=== PATIENT | female | born 1935 | race Caucasian/White ===

== ENCOUNTER 2016-05-23 13:25 | Inpatient (IN) | payer OTHER, BC ==
[~2016-05-23] VITALS: Ht 170.2 cm; Wt 51.9 kg
[2016-05-23] VITALS (9 sets, daily range): BP systolic 131–175; BP diastolic 52–94
[~2016-05-23 13:25] MED LIST: ATORVASTATIN CA40 MG PO; ATORVASTATIN CA80 MG PO; DAILY VALUE1 EACH PO; DIOVAN160 MG PO; GABAPENTIN300 MG PO; GENTAMICIN SULFA5 ML BOTH EYES; LEVOTHYROXINE100 MCG PO; LO-DOSE ASPIRIN81 M1 PO; METOPROLOL SUCC25 MG PO; METOPROLOL TART25 MG PO; NITROSTAT0.4 MG SL; VESICARE10 MG PO; XIFAXAN550 MG PO
[2016-05-23 14:11] LABS: HEMATOCRIT 21.7 % (36.0-46.0); MCH 30.1 PG (29.0-34.0); MCHC 31.3 G/DL (30.0-36.0); MEAN PLAT.VOLUME 10.1 uM^3 (9.5-12.4); PLATELET COUNT 181 K/uL (156-360); RBC DIS.WIDTH-CV 13.6 % (11.8-14.6); RBC DIS.WIDTH-SD 47.6 % (39-53); RED BLOOD COUNT 2.26 M/uL (3.80-5.20); WHITE BLOOD COUNT 6.9 K/uL (4.1-10.2)
[2016-05-23 14:15] LABS: CHLORIDE 106 mEq/L (99-109); POTASSIUM 4.3 mEq/L (3.7-5.4); SODIUM 141 mEq/L (136-147)
[2016-05-23 14:17] LABS: GLUCOSE 116 mg/dL (70-99)
[2016-05-23 14:18] LABS: ANION GAP 7 MEQ/L (2-14)
[2016-05-23 14:20] LABS: GFR ESTIMATE (CALCULATED) > 59 mL/min/
[2016-05-23 14:21] LABS: UREA NITROGEN (BUN) 23 mg/dL (9-23)
[2016-05-23 14:26] LABS: TROP-I INTERPRETATION NEGATIVE; TROPONIN-I < 0.01 ng/mL (0.0-0.30)
[2016-05-23 19:26] LABS: IRON 21 MCG/DL (35-150)
[2016-05-23 19:57] LABS: HEMATOCRIT 25.8 % (36.0-46.0); MCH 29.6 PG (29.0-34.0); MCHC 31.4 G/DL (30.0-36.0); MCV 94.2 FL (83-99); MEAN PLAT.VOLUME 10.6 uM^3 (9.5-12.4); PLATELET COUNT 164 K/uL (156-360); RBC DIS.WIDTH-CV 13.7 % (11.8-14.6); RBC DIS.WIDTH-SD 47.2 % (39-53); WHITE BLOOD COUNT 5.5 K/uL (4.1-10.2)
[2016-05-23 20:01] LABS: FERRITIN 15 NG/ML (10-291)
[2016-05-23 20:31] LABS: RED BLOOD COUNT 2.74 M/uL (3.80-5.20)
[2016-05-23 23:34] LABS: HEMATOCRIT 27.3 % (36.0-46.0); MCH 29.7 PG (29.0-34.0); MCHC 32.6 G/DL (30.0-36.0); PLATELET COUNT 154 K/uL (156-360); RBC DIS.WIDTH-CV 13.6 % (11.8-14.6); RBC DIS.WIDTH-SD 45.2 % (39-53); WHITE BLOOD COUNT 5.4 K/uL (4.1-10.2)
[2016-05-23 23:49] LABS: INTER. NORMALIZED RATIO 1.1; PROTHROMBIN TIME 11.6 (9.2-11.2); PTT 25.5 (25-32)
[2016-05-24 08:11] LABS: HEMATOCRIT 29.1 % (36.0-46.0); MCH 29.8 PG (29.0-34.0); MCHC 32.3 G/DL (30.0-36.0); MCV 92.4 FL (83-99); MEAN PLAT.VOLUME 10.7 uM^3 (9.5-12.4); PLATELET COUNT 155 K/uL (156-360); RBC DIS.WIDTH-CV 13.9 % (11.8-14.6); RBC DIS.WIDTH-SD 47.6 % (39-53); RED BLOOD COUNT 3.15 M/uL (3.80-5.20)
[2016-05-24 08:40] LABS: CHLORIDE 110 mEq/L (99-109); POTASSIUM 4.4 mEq/L (3.7-5.4); SODIUM 142 mEq/L (136-147)
[2016-05-24 08:42] LABS: TROP-I INTERPRETATION NEGATIVE; TROPONIN-I 0.02 ng/mL (0.0-0.30)
[2016-05-24 08:44] LABS: ANION GAP 8 MEQ/L (2-14)
[2016-05-24 08:45] LABS: GLUCOSE 73 mg/dL (70-99); TOTAL BILIRUBIN 1.9 mg/dL (0.0-1.0)
[2016-05-24 08:46] LABS: ALKALINE PHOSPHATASE 48 IU/L (3-129)
[2016-05-24 08:47] LABS: GFR ESTIMATE (CALCULATED) > 59 mL/min/
[2016-05-24 08:48] LABS: DIRECT BILIRUBIN 0.6 mg/dL (0.0-0.3); UREA NITROGEN (BUN) 22 mg/dL (9-23)
[2016-05-24 08:50] LABS: CREATINE KINASE 78 IU/L (1-294); TOTAL CK 78 IU/L (1-294)
[2016-05-24 09:22] VITALS: BP 124/65
[2016-05-24 11:08] VITALS: BP 136/65
[2016-05-24 15:05] VITALS: BP 138/65
[2016-05-24 18:03] LABS: HEMATOCRIT 31.9 % (36.0-46.0); MCH 29.6 PG (29.0-34.0); MCHC 31.7 G/DL (30.0-36.0); MCV 93.5 FL (83-99); MEAN PLAT.VOLUME 10.6 uM^3 (9.5-12.4); PLATELET COUNT 176 K/uL (156-360); RED BLOOD COUNT 3.41 M/uL (3.80-5.20); WHITE BLOOD COUNT 7.3 K/uL (4.1-10.2)
[2016-05-24 20:00] VITALS: BP 170/74
[2016-05-25] VITALS (11 sets, daily range): BP systolic 128–182; BP diastolic 58–75
[2016-05-25 05:36] LABS: HEMATOCRIT 27.6 % (36.0-46.0); MCH 29.5 PG (29.0-34.0); MCHC 31.2 G/DL (30.0-36.0); MCV 94.5 FL (83-99); MEAN PLAT.VOLUME 11.4 uM^3 (9.5-12.4); PLATELET COUNT 150 K/uL (156-360); RBC DIS.WIDTH-SD 48.2 % (39-53); RED BLOOD COUNT 2.92 M/uL (3.80-5.20); WHITE BLOOD COUNT 6.1 K/uL (4.1-10.2)
[2016-05-25 06:34] LABS: ANION GAP 9 MEQ/L (2-14); CHLORIDE 109 MEQ/L (99-109); GFR ESTIMATE (CALCULATED) > 59 mL/min/; GLUCOSE 62 mg/dL (70-99); POTASSIUM 4.4 MEQ/L (3.7-5.4); SAMPLE HEMOLYSIS CHECK 0; SAMPLE ICTERIC CHECK 0; SAMPLE LIPEMIA CHECK 0; SODIUM 142 MEQ/L (136-147); UREA NITROGEN (BUN) 25 mg/dL (9-23)
[2016-05-25 18:28] LABS: HEMATOCRIT 32.3 % (36.0-46.0); MCH 29.6 PG (29.0-34.0); MCHC 31.9 G/DL (30.0-36.0); MCV 92.8 FL (83-99); MEAN PLAT.VOLUME 10.5 uM^3 (9.5-12.4); PLATELET COUNT 161 K/uL (156-360); RBC DIS.WIDTH-CV 14.4 % (11.8-14.6); RBC DIS.WIDTH-SD 48.4 % (39-53); RED BLOOD COUNT 3.48 M/uL (3.80-5.20); WHITE BLOOD COUNT 5.5 K/uL (4.1-10.2)
[2016-05-26 00:50] VITALS: BP 130/40
[2016-05-26 03:40] VITALS: BP 140/60
[2016-05-26 07:54] LABS: HEMATOCRIT 33.6 % (36.0-46.0); MCH 29.6 PG (29.0-34.0); MCHC 31.8 G/DL (30.0-36.0); MCV 92.8 FL (83-99); MEAN PLAT.VOLUME 10.7 uM^3 (9.5-12.4); PLATELET COUNT 157 K/uL (156-360); RBC DIS.WIDTH-CV 14.4 % (11.8-14.6); RBC DIS.WIDTH-SD 48.8 % (39-53); RED BLOOD COUNT 3.62 M/uL (3.80-5.20)
[2016-05-26 07:55] LABS: WHITE BLOOD COUNT 9.1 K/uL (4.1-10.2)
[2016-05-26 08:19] LABS: ANION GAP 10 MEQ/L (2-14); CHLORIDE 111 MEQ/L (99-109); GFR ESTIMATE (CALCULATED) > 59 mL/min/; POTASSIUM 4.5 MEQ/L (3.7-5.4); SAMPLE HEMOLYSIS CHECK 0; SAMPLE ICTERIC CHECK 0; SAMPLE LIPEMIA CHECK 0; SODIUM 141 MEQ/L (136-147); UREA NITROGEN (BUN) 19 mg/dL (9-23)
[2016-05-26 08:20] LABS: GLUCOSE 89 mg/dL (70-99)
[2016-05-26 08:40] VITALS: BP 123/54
[2016-05-26 15:35] LABS: HEMATOCRIT 33.6 % (36.0-46.0); MCH 29.9 PG (29.0-34.0); MCHC 32.1 G/DL (30.0-36.0); MCV 93.1 FL (83-99); MEAN PLAT.VOLUME 11.4 uM^3 (9.5-12.4); PLATELET COUNT 182 K/uL (156-360); RBC DIS.WIDTH-CV 14.4 % (11.8-14.6); RBC DIS.WIDTH-SD 49.1 % (39-53); RED BLOOD COUNT 3.61 M/uL (3.80-5.20); WHITE BLOOD COUNT 7.6 K/uL (4.1-10.2)
[2016-05-26 15:50] LABS: INTER. NORMALIZED RATIO 1.1; PTT 24.4 (25-32)
[2016-05-26 16:00] VITALS: BP 140/60
[2016-05-26 20:00] VITALS: BP 146/64
[2016-05-26 21:06] LABS: HEMATOCRIT 30.1 % (36.0-46.0); MCH 29.4 PG (29.0-34.0); MCHC 31.9 G/DL (30.0-36.0); MCV 92.3 FL (83-99); MEAN PLAT.VOLUME 10.7 uM^3 (9.5-12.4); PLATELET COUNT 164 K/uL (156-360); RBC DIS.WIDTH-SD 47.6 % (39-53); RED BLOOD COUNT 3.26 M/uL (3.80-5.20); WHITE BLOOD COUNT 6.5 K/uL (4.1-10.2)
[2016-05-27] VITALS: BP 148/67
[2016-05-27 03:12] LABS: HEMATOCRIT 25.7 % (36.0-46.0); MCH 29.7 PG (29.0-34.0); MCHC 32.7 G/DL (30.0-36.0); MCV 90.8 FL (83-99); MEAN PLAT.VOLUME 10.8 uM^3 (9.5-12.4); PLATELET COUNT 140 K/uL (156-360); RBC DIS.WIDTH-CV 13.7 % (11.8-14.6); RBC DIS.WIDTH-SD 45.3 % (39-53); RED BLOOD COUNT 2.83 M/uL (3.80-5.20); WHITE BLOOD COUNT 5.7 K/uL (4.1-10.2)
[2016-05-27 03:14] LABS: HEMATOCRIT 25.7 % (36.0-46.0); MCH 29.7 PG (29.0-34.0); MCHC 32.7 G/DL (30.0-36.0); MCV 90.8 FL (83-99); MEAN PLAT.VOLUME 10.8 uM^3 (9.5-12.4); PLATELET COUNT 140 K/uL (156-360); RBC DIS.WIDTH-CV 13.7 % (11.8-14.6); RED BLOOD COUNT 2.83 M/uL (3.80-5.20); WHITE BLOOD COUNT 5.7 K/uL (4.1-10.2)
[2016-05-27 03:15] LABS: RBC DIS.WIDTH-SD 45.3 % (39-53)
[2016-05-27 03:58] VITALS: BP 134/64
[2016-05-27 08:00] VITALS: BP 167/105
[2016-05-27 10:58] LABS: HEMATOCRIT 31.9 % (36.0-46.0); MCH 29.4 PG (29.0-34.0); MCHC 31.7 G/DL (30.0-36.0); MEAN PLAT.VOLUME 11.2 uM^3 (9.5-12.4); PLATELET COUNT 160 K/uL (156-360); RBC DIS.WIDTH-CV 14.1 % (11.8-14.6); RBC DIS.WIDTH-SD 47.8 % (39-53); WHITE BLOOD COUNT 6.3 K/uL (4.1-10.2)
[2016-05-27 11:04] LABS: RED BLOOD COUNT 3.43 M/uL (3.80-5.20)
[2016-05-27 11:58] VITALS: BP 176/72
[2016-05-27 15:04] VITALS: BP 165/78
== END 2016-05-27 15:12 | disposition short-term general hospital (02) | DRG 378 ==
LOC: EME 13:25 → EDOF 16:36 → 4SOUTH 16:36 → EDOF 05-24 08:17 → 4SOUTH 05-24 09:07
PROVIDERS: Internal Medicine; Specialist
PROC: 30233N1 Transfusion of Nonautologous Red Blood Cells into Peripheral Vein, Percutaneous Approach (ICD-10-PCS; principal; 2016-05-23)
PROC: 0D5P7ZZ Destruction of Rectum, Via Natural or Artificial Opening (ICD-10-PCS; 2016-05-25)
PROC: 0DJ08ZZ Inspection of Upper Intestinal Tract, Via Natural or Artificial Opening Endoscopic (ICD-10-PCS; 2016-05-25)
DX: K92.1 Melena (principal); D62 Acute posthemorrhagic anemia; Q43.8 Other specified congenital malformations of intestine; Z68.1 Body mass index [BMI] 19.9 or less, adult; K55.21 Angiodysplasia of colon with hemorrhage; I78.0 Hereditary hemorrhagic telangiectasia; F32.9 Major depressive disorder, single episode, unspecified; K62.7 Radiation proctitis; I25.10 Atherosclerotic heart disease of native coronary artery without angina pectoris; D50.8 Other iron deficiency anemias; K29.60 Other gastritis without bleeding; J44.9 Chronic obstructive pulmonary disease, unspecified; K92.0 Hematemesis; E03.9 Hypothyroidism, unspecified; E78.5 Hyperlipidemia, unspecified; K59.00 Constipation, unspecified; K21.9 Gastro-esophageal reflux disease without esophagitis; I10 Essential (primary) hypertension; G62.9 Polyneuropathy, unspecified; G89.29 Other chronic pain; R63.6 Underweight; Z85.41 Personal history of malignant neoplasm of cervix uteri; Z95.5 Presence of coronary angioplasty implant and graft; Z79.82 Long term (current) use of aspirin; Z88.2 Allergy status to sulfonamides
CPT/HCPCS: 71020; 78278; 80048; 80076; 82550 91; 82553; 82728; 83540; 84466; 84484; 85027; 85610; 85730; 86850; 86900; 86901; 86920; 93005; 99281; 99285; A9512; A9560; C9113; J3480; J7030; P9016

== ENCOUNTER → 2016-12-31 | Outpatient (CLI) | payer OTHER, BC ==
[~2016-12-31] VITALS: Ht 170.2 cm; Wt 49.9 kg
[~2016-12-31] MED LIST changes: +IPRATROPIUM BRO30 ML BOTH NARES
== END | disposition home or self-care (01) ==
LOC: AMB 07:37
PROC: 0DJ08ZZ Inspection of Upper Intestinal Tract, Via Natural or Artificial Opening Endoscopic (ICD-10-PCS; principal; 2016-12-31)
PROC: BD41ZZZ Ultrasonography of Esophagus (ICD-10-PCS; principal; 2016-12-31)
DX: K22.8 Other specified diseases of esophagus (principal); I10 Essential (primary) hypertension; E03.9 Hypothyroidism, unspecified; K21.9 Gastro-esophageal reflux disease without esophagitis; E78.5 Hyperlipidemia, unspecified; D64.9 Anemia, unspecified; Z88.2 Allergy status to sulfonamides; Z95.1 Presence of aortocoronary bypass graft; Z95.5 Presence of coronary angioplasty implant and graft
CPT/HCPCS: C1726; J0330; J0461; J1100; J2310; J2405; J3010